=== PATIENT | male | born 1935 | race Caucasian/White ===

== ENCOUNTER → 2016-08-11 | Outpatient (CLI) | payer OTHER, BC ==
[~2016-08-11] VITALS: Ht 182.9 cm; Wt 93.9 kg
[~2016-08-11] MED LIST: ASPIR 8181 MG PO; ASPIRIN325 PO; ATENOLOL 50MG T50 MG PO; ATORVASTATIN CA80 MG PO; CARVEDILOL12.5 MG PO; ELIQUIS5 MG PO; ENTRESTO 24 MG1 EACH PO; FELODIPINE ER10 MG PO; K-DUR 20 MEQ T20 MEQ PO; LASIX 20 MG TAB20 MG PO; LEVOXYL100 MCG PO; LEVOXYL25 MCG PO; LISINOPRIL40 MG PO; SIMVASTATIN80 MG PO; ZESTRIL5 MG PO
--- NOTE | ~2016-08-11 | HPC ---
[facility] [address] [place] [address] PAIN MANAGEMENT CONSULTATION Name: NYDIASHALINIJACK [facility] #: [facility] [id number] Admission: 08/11/16 Attend Phys: Enrique Rea DO Discharge: Date of : 39 Report #: [id number] THIS REPORT FOR: //name// CC: [facility] physician/PCP Enrique Rea The patient is a pleasant 80-year-old gentleman, prior seen in the pain clinic on 05/08/2016, being treated for symptomatic cervical spondylosis, component of myofascial pain. He was given left C2-C3, C3-C4 and C4-C5 (all left) cervical facet joint injections with significant improvement of baseline pain. The patient notes pain has gradually recurred without antecedent trauma and overuse. Pain is in the left neck and shoulder. He has coronary artery disease and was working with cardiac rehab. While doing more lower extremity and core strength as well as aerobic activity, he states that occasionally his neck would become a little more problematic. He notes pain is in the left neck, exacerbated with left rotation. No significant cervical radicular symptoms are noted. Physical exam shows gentleman who appears to be a little icteric, sclerae are somewhat yellowish though he assures me he just had his physical and all of his lab work was normal. Cervical range of motion is limited, specifically to the left cervical rotation and a little bit to flexion, extension. Upper extremity strength is symmetric. Cranial nerves 2-12 are grossly intact. Tender to palpation over the superior cervical facets. Heart is regular and rhythmical. Lungs are clear. Vital signs as noted on the EMR. ASSESSMENT: Symptomatic cervical spondylosis by clinical exam, component of myofascial pain in a gentleman who had greater than 70% relief for several months following cervical facets back in April. RECOMMENDATIONS: Repeat left C2-C3, C3-C4 and C4-C5 facet joint injection under fluoroscopy today. We will trial some topical Voltaren gel, follow up simply as needed. PROCEDURE NOTE: Cervical facet joint injections under fluoroscopy, left times 3. INDICATION: Symptomatic cervical spondylosis. Fluoroscopy time is less than 15 seconds. PROCEDURE: After written informed consent was obtained, the patient was taken to the fluoroscopy suite, placed in prone position. After sterile prep and drape, skin wheals with Xylocaine were raised times 3. A 22-gauge stylet needle was placed in the mid lateral mass in the posterior aspect to contact posterior aspect of the left C2-C3, C3-C4 and C4-C5 facet joints. AP and lateral projections showed good needle placement. A 2.5 mg of Decadron plus 1 mL of 0.5% preservative-free bupivacaine was injected at each site. All 3 needles removed. The area was cleansed, Band-Aids applied. The patient was monitored [address] [address] PAIN MANAGEMENT CONSULTATION Name: JACK KWON Room #: REG JONNIE [place]#: [id number] Admission: 08/11/16 Attend Phys: Enrique Rea DO Discharge: Date of : 39 Report #: [id number] for an appropriate period of time, discharged in good and stable condition, noting incremental improvement of baseline pain. <ELECTRONICALLY SIGNED> By: Enrique eRa DO 08/13/16 0729 [id number] Enrique Rea DO /nt
[2016-08-11 13:19] VITALS: BP 96/68
== END | disposition home or self-care (01) ==
LOC: PAIN 08-01 14:28
DX: M47.812 Spondylosis without myelopathy or radiculopathy, cervical region (principal); M79.1 Myalgia; I25.10 Atherosclerotic heart disease of native coronary artery without angina pectoris

== ENCOUNTER → 2017-01-02 | Outpatient (CLI) | payer OTHER, BC ==
[~2017-01-02] VITALS: Ht 182.9 cm; Wt 76.7 kg
[~2017-01-02] MED LIST changes: +LEVOXYL112 MCG PO; +TOPROL XL25 MG PO
--- NOTE | ~2017-01-02 | HPC ---
[facility] [address] [place] [address] PAIN MANAGEMENT CONSULTATION Name: NYDIASHALINIJACK Hernandez Room #: REG [facility] Silvano.#: [id number] Admission: 01/02/17 Attend Phys: Enrique Rea DO Discharge: Date of : 39 Report #: [id number] THIS REPORT FOR: //name// CC: PRABHJOT Rea HISTORY OF PRESENT ILLNESS: The patient is a very pleasant 81-year-old gentleman, prior seen in July for cervical spondylosis, was given 3 cervical facet joint injections to C2-C3, C3-C4 and C4-C5 with good improvement in overall pain. Somewhat lost to followup. At that time, he had significant ascites and I thought a somewhat icteric appearance. The patient tells me he did have a paracentesis removing 8 liters of fluid. He lost greater than 20 pounds. He still has somewhat ascitic-looking abdomen and perhaps a trace of icterus noted on the face and sclera, though he does appear overall a little bit better. He has been worked up extensively per the patient from his family practice physician. The bilirubin was high, but no primary hepatic pathology was found (?). PHYSICAL EXAMINATION: VITAL SIGNS: Shows vital signs stable. GENERAL: Again, chronically ill-appearing 81-year-old gentleman with a rotund abdomen, appearing to have a little ascites. Otherwise, some muscle wasting is noted. MUSCULOSKELETAL: Very tender over the cervical facets superiorly. Cervical range of motion causes pain. Upper extremity strength is diminished, but symmetric. Lhermitte's is negative and hand grasp is symmetric. 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 He uses Eliquis, though he has been off for 5 days. RECOMMENDATIONS: Cervical facet joint injection under fluoroscopy today, left C2-C3, C3-C4 and C4-C5. Resume Eliquis tonight. Follow up in 4 weeks for reevaluation. If the symptoms are continuing, we will ask him to discontinue his Eliquis to again 5 days prior to the office visit for consideration for repeat cervical facet joint injections under fluoroscopy. PROCEDURE NOTE: Cervical facet joint injections under fluoroscopy times 3. INDICATION: Left-sided cervical spondylosis. DESCRIPTION OF PROCEDURE: After written informed consent was obtained, the patient was taken to the fluoroscopy suite and placed in prone position. After sterile prep and drape, skin wheals with Xylocaine were raised and three 22-gauge stylet needles were placed to contact the posterior aspect of the left [address] [address] PAIN MANAGEMENT CONSULTATION Name: JACK KWON Room #: REG JONNIE [place]#: [id number] Admission: 01/02/17 Attend Phys: Enrique Rea DO Discharge: Date of : 39 Report #: [id number] C2-C3, C3-C4 and C4-C5 facet joints in the middle of the lateral mass on the left side. AP and lateral projections showed good needle placement at the posterior aspect of the facet joints. A 2.5 mg of Decadron plus 1 mL of 0.5% preservative-free bupivacaine were injected at each of the 3 sites. All 3 needles were removed. The area was cleansed and Band-Aids applied. The patient was monitored for an appropriate period of time and discharged in good and stable condition. <ELECTRONICALLY SIGNED> By: Enrique Rea DO 01/05/17 0856 [id number] Enrique Rae DO /nt
[2017-01-02 09:40] VITALS: BP 106/80
== END | disposition home or self-care (01) ==
LOC: PAIN 06:57
DX: M47.812 Spondylosis without myelopathy or radiculopathy, cervical region (principal)